=== PATIENT | female | born 1990 | race Caucasian/White ===

== ENCOUNTER 2017-12-14 17:39 | Emergency (ER) | payer OTHER ==
[~2017-12-14] VITALS: Ht 160 cm; Wt 63.0 kg
[~2017-12-14 17:39] MED LIST: OXYC1SOL5 PO; PREN0.01 PO
[2017-12-14 18:13] VITALS: BP 113/78; PULSE 85; RESP 16; TEMP 98.2; O2SAT 100
[2017-12-14] MEDS ORDERED: CYCL10TA PO (18:38)
[2017-12-14] MEDS ORDERED: IBUP-232 PO (18:38)
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
[2017-12-14] MEDS ORDERED: IBUPROFEN 800 MG TAB PO ONE (18:45)
[2017-12-14] MEDS ORDERED: ACETAMINOPHEN 500 MG CPLT PO ONE (18:45)
== END 2017-12-14 18:57 | disposition home or self-care (01) ==
LOC: NEPK 17:39
DX: S16.1XXA Strain of muscle, fascia and tendon at neck level, initial encounter (principal); V43.52XA Car driver injured in collision with other type car in traffic accident, initial encounter; Y92.410 Unspecified street and highway as the place of occurrence of the external cause
CPT/HCPCS: 99283